=== PATIENT | female | born 1945 | race Caucasian/White ===

== ENCOUNTER 2018-06-11 22:50 | Emergency (ER) | payer OTHER ==
[2018-06-12] MEDS ORDERED: KETOROLAC 30 MG/ML INJ ONE (00:08)
[2018-06-12] MEDS ORDERED: NA CHLORIDE 0.9% 1,000 ML ONE (00:08)
[2018-06-12] MEDS ORDERED: HYDROCODONE/APAP 10/325 TAB ONE (00:08)
[2018-06-12 00:09] LABS: Absolute Lymphocytes (CBC) 1.9 K/uL (0.7-4.9); Absolute Monocytes 0.7 K/uL (0.1-1.3); Basophils % 0.6 % (0-1.3); Eosinophils % 1.4 % (0-4.4); Hematocrit 43.1 % (36.0-45.0); MPV 8.3 fL (7.6-11.3); Monocytes % 5.9 % (3.3-12.3); RBC Red Blood Cell Count 4.67 M/uL (3.86-4.86)
[2018-06-12 00:23] LABS: Urine Blood 2+ (NEG); Urine Glucose NEGATIVE (NEG); Urine Protein NEGATIVE (NEG); Urine Specific Gravity 1.025 (1.005-1.030)
[2018-06-12 00:28] LABS: Potassium 3.8 mmol/L (3.5-5.1)
[2018-06-12 00:40] LABS: Urine Bacteria <20 /HPF (<20); Urine Culture Reflex Order NOT NEEDED
--- NOTE | 2018-06-12 01:19 | ER ---
Nurse's Notes [facility] Name: Maryam Johnston Age: 73 yrs Sex: Female : 1945 Arrival Date: 06/11/2018 Time: 22:54 Bed 14 Private MD: Jose Carlson Diagnosis: Calculus of ureter Presentation: 06/11 23:10 Presenting complaint: Patient states: I have a 5mm kidney stone, I have an appointment jb4 on Tuesday for lithotripsy, I came in tonight due to the pain. I [place] a tramadol [place] 1800 and [id number], and diclofenac at 1800. 23:10 Transition of care: patient was not received from another setting of care. Onset of jb4 symptoms was June 11, 2018. Risk Assessment: Do you want to hurt yourself or someone else? Patient reports no desire to harm self or others. Initial Sepsis Screen: Does the patient meet any 2 criteria? HR > 90 bpm. Yes Does the patient have a suspected source of infection? No. Patient's initial sepsis screen is negative. Care prior to arrival: None. 23:10 Method Of Arrival: Ambulatory jb4 23:10 Acuity: MADISYN 3 jb4 Triage Assessment: 23:10 General: Appears in no apparent distress. uncomfortable, Behavior is calm, cooperative, jb4 appropriate for age. Pain: Complains of pain in left low back Pain radiates to left lower quadrant Pain currently is 10 out of 10 on a pain scale. EENT: No signs and/or symptoms were reported regarding the EENT system. Neuro: Level of Consciousness is awake, alert, obeys commands, Oriented to person, place, time, situation. Cardiovascular: Patient's skin is warm and dry. Respiratory: Airway is patent Respiratory effort is even, unlabored, Respiratory pattern is regular, symmetrical. GI: Reports nausea. : Reports pain in left flank(s), lower quadrant(s). Derm: Skin is intact, Skin is pink, warm \T\ dry. Musculoskeletal: Circulation, motion, and sensation intact. Historical: - Allergies: 23:10 No Known Allergies; jb4 - Home Meds: 23:10 Bystolic Oral [Active]; pravastatin Oral [Active]; Celexa Oral [Active]; Vitamin D Oral jb4 [Active]; levothyroxine oral [Active]; Wellbutrin Oral [Active]; Tramadol Oral [Active]; diclofenac oral oral [Active]; - PMHx: 23:10 Hyperlipidemia; Hypertension; Hypothyroidism; Kidney stones; jb4 - PSHx: 23:10 None; jb4 - Immunization history:: Adult Immunizations up to date. - Social history:: Smoking status: Patient/guardian denies using tobacco, Patient uses alcohol, occasionally. - Ebola Screening: : No symptoms or risks identified at this time. Screenin:10 Abuse screen: Denies threats or abuse. Nutritional screening: No deficits noted. jb4 Tuberculosis screening: No symptoms or risk factors identified. Fall Risk IV access (20 points). Total Myers Fall Scale indicates No Risk (0-24 pts). Assessment: 23:10 General: see triage assessment.. jb4 06/12 00:00 Reassessment: Patient appears in no apparent distress at this time. Patient and/or jb4 family updated on plan of care and expected duration. Pain level reassessed. Patient is alert, oriented x 3, equal unlabored respirations, skin warm/dry/pink. 01:00 Reassessment: Patient appears in no apparent distress at this time. Patient and/or jb4 family updated on plan of care and expected duration. Pain level reassessed. Patient is alert, oriented x 3, equal unlabored respirations, skin warm/dry/pink. Patient states feeling better. Vital Signs: 06/11 23:10 BP 152 / 77; Pulse 94; Resp 16; Temp 98.1(O); Pulse Ox 96% on R/A; Weight 95.25 kg (R); jb4 Height 5 ft. 5 in. (165.10 cm) (R); Pain 10/10; 06/12 00:00 BP 172 / 76; Pulse 71; Resp 16; Pulse Ox 97% on R/A; jb4 01:00 BP 135 / 71; Pulse 70; Resp 16; Pulse Ox 98% on R/A; jb4 06/11 23:10 Body Mass Index 34.95 (95.25 kg, 165.10 cm) 4 ED Course: 06/11 22:54 Patient arrived in ED. es 22:54 Jose Carlson MD is Private Physician. es 23:04 Iggy Means MD is Attending Physician. gs 23:10 Arm band placed on left wrist. jb4 23:10 Patient has correct armband on for positive identification. Bed in low position. Call jb4 light in reach. Side rails up X 1. Pulse ox on. NIBP on. 23:24 Gilmar Reaves, RN is Primary Nurse. jb4 23:26 Triage completed. jb4 06/12 00:02 Inserted saline lock: 20 gauge in left antecubital area, using aseptic technique. Blood jb5 collected. 00:03 Basic Metabolic Panel Sent. jb5 00:03 CBC with Diff Sent. jb5 01:15 No provider procedures requiring assistance completed. IV discontinued, intact, jb4 bleeding controlled. Administered Medications: 06/11 23:55 Drug: [place] 10 mg-325 mg 1 tabs Route: PO; jb4 06/12 01:00 Follow up: Response: No adverse reaction; Pain is decreased jb4 06/11 23:59 Drug: NS 0.9% 1000 ml Route: IV; Rate: 1 bolus; Site: left antecubital; jb4 06/12 00:45 Follow up: Response: No adverse reaction; IV Status: Completed infusion; IV Intake: jb4 1000ml 00:00 Drug: TORadol 15 mg Route: IVP; Site: left antecubital; jb4 01:00 Follow up: Response: No adverse reaction; Pain is decreased jb4 Intake: 00:45 IV: 1000ml; Total: 1000ml. jb4 Outcome: 01:18 Discharge ordered by . 01:29 Discharged to home ambulatory, with family. jb4 01:29 Condition: stable 01:29 Discharge instructions given to patient, family, Instructed on discharge instructions, follow up and referral plans. Demonstrated understanding of instructions, follow-up care. 01:31 Patient left the ED. jb4 Signatures: Selina Lynne James, RN RN jb4 Tran Ramirez jb5 Iggy Means MD MD Corrections: (The following items were deleted from the chart) 01:29 06/11 23:10 Fall Risk IV access (20 points). jb4 jb4
--- NOTE | 2018-06-12 01:19 | EDPHYS ---
Physician Documentation [facility] Name: Maryam Johnston Age: 73 yrs Sex: Female : 1945 Arrival Date: 06/11/2018 Time: 22:54 Bed 14 Private MD: Jose Carlson ED Physician Iggy Means HPI: 06/12 01:00 This 73 yrs old Female presents to ER via Ambulatory with complaints of gs Possible Kidney Stone. 01:00 The patient complains of pain in the left low back. Onset: The symptoms/episode gs began/occurred 1 week(s) ago, and became persistent. Associated signs and symptoms: Pertinent negatives: fever. Severity of pain: At its worst the pain was severe in the emergency department the pain is unchanged. The patient has experienced similar episodes in the past, a few times. The patient has been recently seen by a physician: with similar presenting complaints. Historical: - Allergies: 06/11 23:10 No Known Allergies; jb4 - Home Meds: 23:10 Bystolic Oral [Active]; pravastatin Oral [Active]; Celexa Oral [Active]; Vitamin D Oral jb4 [Active]; levothyroxine oral [Active]; Wellbutrin Oral [Active]; Tramadol Oral [Active]; diclofenac oral oral [Active]; - PMHx: 23:10 Hyperlipidemia; Hypertension; Hypothyroidism; Kidney stones; jb4 - PSHx: 23:10 None; jb4 - Immunization history:: Adult Immunizations up to date. - Social history:: Smoking status: Patient/guardian denies using tobacco, Patient uses alcohol, occasionally. - Ebola Screening: : No symptoms or risks identified at this time. ROS: 06/12 01:00 All other systems are negative. gs Exam: 01:00 Head/Face: Normocephalic, atraumatic. Eyes: Pupils equal round and reactive to light, gs extra-ocular motions intact. Lids and lashes normal. Conjunctiva and sclera are non-icteric and not injected. Cornea within normal limits. Periorbital areas with no swelling, redness, or edema. ENT: Nares patent. No nasal discharge, no septal abnormalities noted. Tympanic membranes are normal and external auditory canals are clear. Oropharynx with no redness, swelling, or masses, exudates, or evidence of obstruction, uvula midline. Mucous membranes moist. Neck: Trachea midline, no thyromegaly or masses palpated, and no cervical lymphadenopathy. Supple, full range of motion without nuchal rigidity, or vertebral point tenderness. No Meningismus. Chest/axilla: Normal chest wall appearance and motion. Nontender with no deformity. No lesions are appreciated. Cardiovascular: Regular rate and rhythm with a normal S1 and S2. No gallops, murmurs, or rubs. Normal PMI, no JVD. No pulse deficits. Respiratory: Lungs have equal breath sounds bilaterally, clear to auscultation and percussion. No rales, rhonchi or wheezes noted. No increased work of breathing, no retractions or nasal flaring. Abdomen/GI: Soft, non-tender, with normal bowel sounds. No distension or tympany. No guarding or rebound. No evidence of tenderness throughout. Skin: Warm, dry with normal turgor. Normal color with no rashes, no lesions, and no evidence of cellulitis. MS/ Extremity: Pulses equal, no cyanosis. Neurovascular intact. Full, normal range of motion. Neuro: Awake and alert, GCS 15, oriented to person, place, time, and situation. Cranial nerves II-XII grossly intact. Motor strength 5/5 in all extremities. Sensory grossly intact. Cerebellar exam normal. Normal gait. 01:00 Constitutional: The patient appears alert, awake, uncomfortable. 01:00 Back: pain, that is moderate. Vital Signs: 06/11 23:10 BP 152 / 77; Pulse 94; Resp 16; Temp 98.1(O); Pulse Ox 96% on R/A; Weight 95.25 kg (R); jb4 Height 5 ft. 5 in. (165.10 cm) (R); Pain 10/10; 06/12 00:00 BP 172 / 76; Pulse 71; Resp 16; Pulse Ox 97% on R/A; jb4 01:00 BP 135 / 71; Pulse 70; Resp 16; Pulse Ox 98% on R/A; jb4 06/11 23:10 Body Mass Index 34.95 (95.25 kg, 165.10 cm) jb4 MDM: 06/11 23:40 Patient medically screened. 06/12 01:12 Differential diagnosis: nephrolithiasis, UTI. Data reviewed: vital signs, nurses notes. Counseling: I had a detailed discussion with the patient and/or guardian regarding: the historical points, exam findings, and any diagnostic results supporting the discharge/admit diagnosis, the need for outpatient follow up. Response to treatment: the patient's symptoms have markedly improved after treatment, the patient's condition has returned to base line. Physician consultation: Nathan Santos MD and will see patient. 06/11 23:42 Order name: CBC with Diff; Complete Time: 00:59 06/11 23:42 Order name: Basic Metabolic Panel; Complete Time: 00:59 06/11 23:42 Order name: Urine Microscopic Only; Complete Time: 00:59 06/12 00:05 Order name: Urine Dipstick--Ancillary (enter results); Complete Time: 00:59 [facility] 06/11 23:42 Order name: Urine Dipstick-Ancillary (obtain specimen); Complete Time: 00:03 Administered Medications: 06/11 23:55 Drug: [place] 10 mg-325 mg 1 tabs Route: PO; [facility] 06/12 01:00 Follow up: Response: No adverse reaction; Pain is decreased [facility] 06/11 23:59 Drug: NS 0.9% 1000 ml Route: IV; Rate: 1 bolus; Site: left antecubital; [facility] 06/12 00:45 Follow up: Response: No adverse reaction; IV Status: Completed infusion; IV Intake: jb4 1000ml 00:00 Drug: TORadol 15 mg Route: IVP; Site: left antecubital; [facility] 01:00 Follow up: Response: No adverse reaction; Pain is decreased [facility] Disposition: 06/12/18 01:18 Discharged to Home. Impression: Calculus of ureter. - Condition is Stable. - Discharge Instructions: Kidney Stones. - Medication Reconciliation Form, Thank You Letter, Antibiotic Education, Prescription Opioid Use form. - Follow up: Private Physician; When: 2 - 3 days; Reason: Re-evaluation by your physician. Signatures: Dispatcher [employer] Gilmar Rodríguez RN RN jb4 Iggy Means MD MD Corrections: (The following items were deleted from the chart) 01:31 01:18 06/12/2018 01:18 Discharged to Home. Impression: Calculus of ureter. Condition is jb4 Stable. Forms are Medication Reconciliation Form, Thank You Letter, Antibiotic Education, Prescription Opioid Use. Follow up: Private Physician; When: 2 - 3 days; Reason: Re-evaluation by your physician. gs
== END 2018-06-12 01:31 | disposition home or self-care (01) ==
LOC: ER 22:50
DX: N20.1 Calculus of ureter (principal); I10 Essential (primary) hypertension; E78.5 Hyperlipidemia, unspecified; E03.9 Hypothyroidism, unspecified
CPT/HCPCS: 36415; 80048; 81003; 81015; 85025; 96361; 96374; 99284

== ENCOUNTER 2019-01-18 15:35 | Emergency (ER) | payer OTHER ==
--- NOTE | 2019-01-18 16:19 | RAD REPORT ---
EXAM DESCRIPTION: RAD - Chest Single View - 01/18/2019 4:12 pm CLINICAL HISTORY: CHEST PAIN Chest pain. COMPARISON: Abdomen 1 View (KUB) dated 06/19/2018; Chest Pa And Lat (2 Views) dated 06/12/2018; Abdomen 1 View (KUB) dated 06/12/2018; Abdomen 1 View (KUB) dated 06/05/2018 FINDINGS: Portable technique limits examination quality. The lungs are grossly clear. The heart is normal in size. No displaced fractures. IMPRESSION: No acute intrathoracic process suspected.
[2019-01-18 16:48] LABS: Absolute Lymphocytes (CBC) 2.8 K/uL (0.7-4.9); Basophils % 0.5 % (0-1.3); Hematocrit 41.2 % (36.0-45.0); Lymphocytes % 36.9 % (15.3-44.8); MPV 9.1 fL (7.6-11.3); RBC Red Blood Cell Count 4.47 M/uL (3.86-4.86)
[2019-01-18 17:05] LABS: ALT/SGPT 41 U/L (12-78); AST/SGOT 21 U/L (15-37); Alkaline Phosphatase 54 U/L (45-117); BUN Blood Urea Nitrogen 17 mg/dL (7-18); Bicarbonate 31 mmol/L (21-32); Bilirubin Direct 0.1 mg/dL (0-0.2); Bilirubin Total 0.3 mg/dL (0.2-1.0); Glucose Level 91 mg/dL (74-106); Magnesium 2.2 mg/dL (1.8-2.4); NT PRO-BNP 65 pg/mL (<125); Potassium 3.9 mmol/L (3.5-5.1); Protein, Total 7.2 g/dL (6.4-8.2); Sodium Level 141 mmol/L (136-145); Troponin (Emerg Dept Use Only) < 0.02 ng/mL (0.0-0.045)
[2019-01-18 17:12] LABS: Protime INR 0.96
--- NOTE | 2019-01-18 17:35 | ER ---
Nurse's Notes [facility] Name: Maryam Johnston Age: 73 yrs Sex: Female : 1945 Arrival Date: 01/18/2019 Time: 15:37 Bed 17 Private MD: Jose Carlson Diagnosis: Palpitations Presentation: 01/18 15:41 Presenting complaint: Patient states: Seen at Dr Carballo's office yesterday for SOB and ph palpitations, was told at that time that EKG "looked OK" but then called her today and told her that EKG was abnormal and to come to ED, pt reports hx of irregular HR, denies SOB or palpitations at this time. Transition of care: patient was not received from another setting of care. Onset of symptoms was January 18, 2019. Risk Assessment: Do you want to hurt yourself or someone else? Patient reports no desire to harm self or others. Initial Sepsis Screen: Does the patient meet any 2 criteria? No. Patient's initial sepsis screen is negative. Does the patient have a suspected source of infection? No. Patient's initial sepsis screen is negative. Care prior to arrival: None. 15:41 Method Of Arrival: Ambulatory ph 15:41 Acuity: MADISYN 3 ph Historical: - Allergies: 15:45 No Known Allergies; ph - PMHx: 15:45 Hyperlipidemia; Hypertension; Hypothyroidism; Kidney stones; ph - PSHx: 15:45 Hysterectomy; ; Cholecystectomy; breast reduction; foot; wrist; ph - Immunization history:: Adult Immunizations unknown. - Social history:: Smoking status: unknown. - Ebola Screening: : No symptoms or risks identified at this time. Screenin:37 Abuse screen: Denies threats or abuse. Denies injuries from another. Nutritional jl7 screening: No deficits noted. Tuberculosis screening: No symptoms or risk factors identified. Fall Risk IV access (20 points). Total Myers Fall Scale indicates No Risk (0-24 pts). Assessment: 16:15 General: Appears in no apparent distress. comfortable, Behavior is calm, cooperative, jl7 appropriate for age. Pain: Denies pain. Neuro: Level of Consciousness is awake, alert, obeys commands, Oriented to person, place, time, situation. Cardiovascular: Reports lightheadedness, Denies chest pain, Heart tones S1 S2 present Patient's skin is warm and dry. Chest pain is denied. Respiratory: Airway is patent Respiratory effort is even, unlabored, Respiratory pattern is regular, symmetrical, Breath sounds are clear bilaterally. GI: No signs and/or symptoms were reported involving the gastrointestinal system. : No signs and/or symptoms were reported regarding the genitourinary system. EENT: No signs and/or symptoms were reported regarding the EENT system. Derm: Skin is pink, warm \\T\\ dry. Musculoskeletal: No signs and/or symptoms reported regarding the musculoskeletal system. 17:15 Reassessment: Patient appears in no apparent distress at this time. No changes from jl7 previously documented assessment. Patient and/or family updated on plan of care and expected duration. Pain level reassessed. Patient is alert, oriented x 3, equal unlabored respirations, skin warm/dry/pink. Vital Signs: 15:43 BP 154 / 97; Pulse 62; Resp 18; Temp 98.1; Pulse Ox 98% on R/A; Weight 95.25 kg; Pain ph 0/10; 16:37 BP 118 / 71; Pulse 62; Resp 16 S; Pulse Ox 100% on R/A; jl7 17:46 BP 125 / 74; Pulse 64; Resp 16 S; Pulse Ox 100% on R/A; Pain 0/10; jl7 ED Course: 15:37 Patient arrived in ED. mr 15:37 Jose Carlson MD is Private Physician. mr 15:43 Triage completed. ph 15:45 Arm band placed on Patient placed in an exam room. ph 15:49 Pillo Moore PA is [facility]. [facility] 15:49 Rajendra Harris MD is Attending Physician. m 15:51 Fabrice Lucia RN is Primary Nurse. jl7 16:02 EKG done, by technical marketing engineer. reviewed by Pillo SEAMAN. sm3 16:14 XRAY Chest (1 view) In Process Unspecified. EDMS 16:15 Patient has correct armband on for positive identification. Placed in gown. Bed in low jl7 position. Call light in reach. Side rails up X 1. pvc monitor on. Pulse ox on. NIBP on. Warm blanket given. 16:23 Initial lab(s) drawn, by me, sent to lab. Missed attempt(s): 20 gauge in right 3 antecubital area. Bleeding controlled, band aid applied, catheter tip intact. 16:25 Inserted saline lock: 22 gauge in right forearm, using aseptic technique. [facility] 17:46 No provider procedures requiring assistance completed. IV discontinued, intact, jl7 bleeding controlled, No redness/swelling at site. Pressure dressing applied. Administered Medications: No medications were administered Outcome: 17:33 Discharge ordered by . gertrudis 17:46 Discharged to home ambulatory, with family. [facility] 17:46 Condition: stable 17:46 Discharge instructions given to patient, family, Instructed on discharge instructions, follow up and referral plans. Demonstrated understanding of instructions, follow-up care. 17:48 Patient left the ED. 7 Signatures: Dispatcher [employer] EDMS Pillo Moore PA PA jmm Rivera, Traci mr Roxanne Solis, RN RN Fabrice Lucia RN RN 7 Joseline Dunham [facility] Melania Reynaga [facility]
--- NOTE | 2019-01-18 17:35 | EDPHYS ---
Physician Documentation [facility] Name: Maryam Johnston Age: 73 yrs Sex: Female : 1945 Arrival Date: 01/18/2019 Time: 15:37 Bed 17 Private MD: Jose Carlson ED Physician Rajendra Harris HPI: 01/18 15:51 This 73 yrs old Female presents to ER via Ambulatory with complaints of jmm Abnormal ekg. 15:51 The patient presents with a history of heart racing. Onset: The symptoms/episode jmm began/occurred gradually, 2 day(s) ago. Duration: The patient or guardian reports multiple episodes, that have now resolved. Modifying factors: The symptoms are aggravated by nothing. The symptoms are alleviated by prescription medication. Associated signs and symptoms: Pertinent negatives: SOB. This is a 73 year old female with a history of hlp, htn, hypothyroidism, that presents to the ED with complaints of palpitations beginning 2 days ago. Patient states symptoms have decreased with increased dose of bystolic. Patient normally takes 5 mg daily. Patient was evaluated by PCP with concerns due to ekg changes today. Advised to go to the ED for reevaluation. patient currently denies chest pain. . Historical: - Allergies: 15:45 No Known Allergies; ph - PMHx: 15:45 Hyperlipidemia; Hypertension; Hypothyroidism; Kidney stones; ph - PSHx: 15:45 Hysterectomy; ; Cholecystectomy; breast reduction; foot; wrist; ph - Immunization history:: Adult Immunizations unknown. - Social history:: Smoking status: unknown. - Ebola Screening: : No symptoms or risks identified at this time. ROS: 15:51 Constitutional: Negative for fever, chills, and weight loss. jmm 15:51 Respiratory: Negative for shortness of breath, cough, wheezing, and pleuritic chest pain, Abdomen/GI: Negative for abdominal pain, nausea, vomiting, diarrhea, and constipation, Back: Negative for injury and pain, Neuro: Negative for headache, weakness, numbness, tingling, and seizure. 15:51 Cardiovascular: Positive for palpitations. 15:51 All other systems are negative. Exam: 15:51 Head/Face: atraumatic. Eyes: EOMI, no conjunctival erythema appreciated ENT: Moist jmm Mucus Membranes Neck: Trachea midline, Supple Chest/axilla: Normal chest wall appearance and motion. 15:51 Abdomen/GI: Non distended, soft Back: Normal ROM Skin: General appearance color normal MS/ Extremity: Moves all extremities, no obvious deformities appreciated, no edema noted to the lower extremities Neuro: Awake and alert, normal gait Psych: Behavior is normal, Mood is normal, Patient is cooperative and pleasant 15:51 Constitutional: The patient appears in no acute distress, alert, awake. 15:51 Cardiovascular: Rate: normal, Rhythm: regular, Pulses: no pulse deficits are appreciated. 15:51 Respiratory: the patient does not display signs of respiratory distress, Respirations: normal, Breath sounds: are clear throughout. Vital Signs: 15:43 BP 154 / 97; Pulse 62; Resp 18; Temp 98.1; Pulse Ox 98% on R/A; Weight 95.25 kg; Pain ph 0/10; 16:37 BP 118 / 71; Pulse 62; Resp 16 S; Pulse Ox 100% on R/A; jl7 17:46 BP 125 / 74; Pulse 64; Resp 16 S; Pulse Ox 100% on R/A; Pain 0/10; jl7 MDM: 16:12 Patient medically screened. [facility] 17:32 Data reviewed: vital signs, nurses notes. Counseling: I had a detailed discussion with gertrudis the patient and/or guardian regarding: the historical points, exam findings, and any diagnostic results supporting the discharge/admit diagnosis, lab results, radiology results, the need for outpatient follow up, to return to the emergency department if symptoms worsen or persist or if there are any questions or concerns that arise at home. ED course: EKG does not show ischemic changes. Troponin normal. Outpatient labs reviewed along with negative d-dimer. Patient advised to follow up with pcp and otherwise given strict return precautions. Family understood and agrees with the plan of care. . 01/18 15:51 Order name: Basic Metabolic Panel; Complete Time: 17:08 [facility] 01/18 15:51 Order name: CBC with Diff; Complete Time: 17:31 [facility] 01/18 15:51 Order name: LFT's; Complete Time: 17:08 [facility] 01/18 15:51 Order name: Magnesium; Complete Time: 17:08 [facility] 01/18 15:51 Order name: NT PRO-BNP; Complete Time: 17:08 [facility] 01/18 15:51 Order name: PT-INR; Complete Time: 17:31 [facility] 01/18 15:51 Order name: Troponin (emerg Dept Use Only); Complete Time: 17:08 [facility] 01/18 15:51 Order name: XRAY Chest (1 view); Complete Time: 16:23 [facility] 01/18 15:51 Order name: EKG; Complete Time: 15:52 [facility] 01/18 15:51 Order name: Cardiac monitoring; Complete Time: 16:28 [facility] 01/18 15:51 Order name: EKG - Nurse/Tech; Complete Time: 16:28 [facility] 01/18 15:51 Order name: IV Saline Lock; Complete Time: 16:28 [facility] 01/18 15:51 Order name: Labs collected and sent; Complete Time: 16:28 [facility] 01/18 15:51 Order name: O2 Per Protocol; Complete Time: 16:28 [facility] 01/18 15:51 Order name: O2 Sat Monitoring; Complete Time: 16:28 [facility] Administered Medications: No medications were administered Disposition: 01/19 07:31 Co-signature as Attending Physician, Rajendra Harris MD I agree with the assessment and kdr plan of care. Disposition: 01/18/19 17:33 Discharged to Home. Impression: Palpitations. - Condition is Stable. - Discharge Instructions: Palpitations. - Medication Reconciliation Form, Thank You Letter, Antibiotic Education, Prescription Opioid Use form. - Follow up: Private Physician; When: 2 - 3 days; Reason: Recheck today's complaints, Continuance of care, Re-evaluation by your physician. Signatures: Dispatcher [employer] EDRajendra Xiong MD MD kdr Mickail, Joel, PA PA [facility] Roxanne Solis, MIAH RN Fabrice Cueva RN RN jl7 Corrections: (The following items were deleted from the chart) 01/18 17:48 17:33 01/18/2019 17:33 Discharged to Home. Impression: Palpitations. Condition is jl7 Stable. Forms are Medication Reconciliation Form, Thank You Letter, Antibiotic Education, Prescription Opioid Use. Follow up: Private Physician; When: 2 - 3 days; Reason: Recheck today's complaints, Continuance of care, Re-evaluation by your physician. [facility]
[2019-01-18 18:49] VITALS: TEMP 98.1
[2019-01-18 18:50] VITALS: O2SAT 100
[2019-01-18 18:52] VITALS: BP 125/74
--- NOTE | 2019-01-19 07:55 | EKG ---
Test Date: 2019-01-18 Test Time: 15:59:24 Bag Machine Operator: CHAUNCEY MEASUREMENT RESULTS: Intervals: Rate: 62 [place]: 162 QRSD: 82 QT: 414 QTc: 420 [place]: P: 39 [place]: 162 QRS: 7 T: 67 INTERPRETIVE STATEMENTS: Normal sinus rhythm Low voltage QRS Cannot rule out Anterior infarct, age undetermined Abnormal ECG Compared to ECG 06/12/2018 08:47:08 questionable myocardial infarct finding now present Electronically Signed On 01-19-19 07:55:19 ASSOCIATE PUBLISHER by Rufus Villatoro
== END 2019-01-18 17:48 | disposition home or self-care (01) ==
LOC: ER 15:35
DX: R00.2 Palpitations (principal); I10 Essential (primary) hypertension
CPT/HCPCS: 36415; 71045; 80048; 80076; 82550; 82553; 83735; 83880; 84439; 84443; 84481; 84484; 85025; 85379; 85610; 93005; 99284